=== PATIENT | male | born 1980 | race Hispanic/Latino ===

== ENCOUNTER 2018-05-28 10:06 | Inpatient (IN) | payer SELFPAY ==
[~2018-05-28] VITALS: Ht 167.6 cm; Wt 100.8 kg
[2018-05-28] MEDS ORDERED: ONDANSETRON HCL INJ 2 MG/ML VIAL IV STA (10:07)
[2018-05-28] MEDS ORDERED: MORPHINE SULFATE INJ 4 MG/ML INJ IV STA (10:07)
[2018-05-28] MEDS ORDERED: SODIUM CHLORIDE 0.9% 1000ML 1,000 ML IV STA (10:07)
[2018-05-28] MEDS ORDERED: DIATRIZOATE MEGL/DIATRIZOA SOD 30 ML BTL PO ONE (10:17)
[2018-05-28 10:26] LABS: BASOPHILS % 0.4 % (0.0-1.0); EOSINOPHILS % 0.3 % (0.0-6.0); HEMATOCRIT 41.3 % (38.2-49.6); HEMOGLOBIN 14.3 g/dL (14.0-18.0); LYMPHOCYTES % 9.4 % (18.0-39.1); MEAN CORPUSCULAR HGB CONC 34.6 g/dL (31-35); MEAN CORPUSCULAR VOLUME 89.4 fL (81-99); MONOCYTES # (AUTO) 0.8 (0.2-0.8); NEUTROPHILS % 82.4 % (38.7-80.0); PLATELET COUNT 328 x10e3/uL (140-360); RED BLOOD COUNT 4.62 x10e6/uL (4.3-5.7); RED CELL DISTRIBUTION WIDTH 12.7 % (11.7-14.4)
[2018-05-28 10:45] LABS: ALANINE AMINOTRANSFERASE 16 IU/L (0-55); ALBUMIN 3.8 g/dL (3.5-5.0); ALBUMIN/GLOBULIN RATIO 0.8 (0.8-2.0); ALKALINE PHOSPHATASE 94 IU/L (40-150); ANION GAP 17.5 mmol/L (8-16); BLOOD UREA NITROGEN 10 mg/dL (7-26); BUN/CREATININE RATIO 11 (6-25); CARBON DIOXIDE 23 mmol/L (22-29); CHLORIDE 103 mmol/L (98-107); CREATININE, SERUM 0.94 mg/dL (0.72-1.25); EST GLOMERULAR FILTRATION RATE > 60 ML/MIN (60-); GLUCOSE 106 mg/dL (74-118); LIPASE 29 U/L (8-78); POTASSIUM 3.5 mmol/L (3.5-5.1); SODIUM 140 mmol/L (136-145)
[2018-05-28] MEDS ORDERED: IBUPROFEN 600 MG TAB PO STA (11:12)
[2018-05-28 12:15] LABS: AMPHETAMINES SCREEN,URINE NEGATIVE (NEGATIVE); BENZODIAZEPINES SCREEN,URINE NEGATIVE (NEGATIVE); PHENCYCLIDINE SCREEN,URINE NEGATIVE (NEGATIVE)
[2018-05-28 12:17] LABS: CLARITY,URINE HAZY (CLEAR); COLOR,URINE YELLOW (YELLOW); LEUKOCYTE ESTERASE ,URINE TRACE (NEGATIVE)
[2018-05-28 12:18] LABS: BILIRUBIN,URINE 1+ (NEGATIVE); KETONES,URINE 1+ (NEGATIVE); NITRITE,URINE NEGATIVE (NEGATIVE); PROTEIN,URINE DIPSTICK TRACE (NEGATIVE); URINE UROBILINOGEN 4 mg/dL (0.2 - 1)
[2018-05-28 12:27] LABS: AMORPHOUS SEDIMENT,URINE FEW (FEW); BACTERIA,URINE FEW /HPF; EPITHELIAL CELLS,URINE FEW /LPF
--- NOTE | 2018-05-28 12:59 | Diagnostic Imaging Report ---
EXAM: CT Abdomen and Pelvis WITH contrast INDICATION: \S\r/o divertic / appy / etc COMPARISON: None. TECHNIQUE: Abdomen and pelvis were scanned utilizing a multidetector helical scanner from the lung base to the pubic symphysis after administration of IV contrast. Coronal and sagittal reformations were obtained. Dose modulation, iterative reconstruction, and/or weight based adjustment of the mA/kV was utilized to reduce the radiation dose to as low as reasonably achievable. Routine protocol was performed. Scan was performed when during portal venous phase. IV CONTRAST: 100 mL of Isovue-370 ORAL CONTRAST: Gastroview COMPLICATIONS: None RADIATION DOSE: Total DLP: 802.70 mGy*cm Estimated effective dose: (DLP x 0.015 x size factor) mSv CTDIvol has been reviewed. It is below the limits set by the Radiation Protocol Committee (RPC). FINDINGS: LINES and TUBES: None. LOWER THORAX: Unremarkable HEPATOBILIARY: 8 mm right hepatic lobe hypodensity is too small to characterize. Otherwise, no focal hepatic lesions. No biliary ductal dilation. GALLBLADDER: No radio-opaque stones or sludge. No wall thickening. SPLEEN: No splenomegaly. PANCREAS: No focal masses or ductal dilatation. ADRENALS: No adrenal nodules KIDNEYS/URETERS: Kidneys enhance symmetrically. No hydronephrosis. No cystic or solid mass lesions. 5 mm right inferior pole calculus. There is also a 5 mm distal right ureteral calculus versus closely abutting phlebolith (series 2, image 65). GI TRACT: No abnormal distention or evidence of bowel obstruction. Colonic diverticulosis with focal sigmoid wall thickening and surrounding inflammation, representing diverticulitis (series 2, image 72). There are few foci of extraluminal air, representing marked perforation (series 2, image 68). Appendix is normal. PELVIC ORGANS/BLADDER: Unremarkable. LYMPH NODES: No lymphadenopathy. VESSELS: Unremarkable. PERITONEUM / RETROPERITONEUM: No free air or fluid. BONES: Unremarkable. SOFT TISSUES: Unremarkable. IMPRESSION: 1. Microperforated sigmoid diverticulitis. The sigmoid colon in the area of diverticulitis is markedly thickened. Underlying lesion cannot be excluded and correlation with colonoscopy after resolution of inflammatory process is recommended. 2. 5 mm nonobstructive right renal calculus. There is also a 5 mm distal right ureteral calculus versus closely abutting phlebolith. No right hydronephrosis. Findings discussed with Dr. Norris at 12:50 PM, on 05/28/2018. Signed by: Dr. Andrew Morales MD on 05/28/2018 12:56 PM
[2018-05-28] MEDS: METRONIDAZOLE 500MG/NS 100ML 100 ML IV SCH ×2 (13:30→22:30)
[2018-05-28] MEDS: SODIUM CHLORIDE 0.9% 1000ML 1,000 ML IV SCH ×2 (15:32→22:30)
[2018-05-28 16:00] VITALS: BP 124/59
[2018-05-28 16:06] VITALS: BP 145/88
[2018-05-28] MEDS ORDERED: IOPAMIDOL 370 MG/ML 200 ML INFUS..BTL INJ ONE (17:37)
[2018-05-28] MEDS ORDERED: SODIUM CHLORIDE 0.9% 50ML 50 ML ONE (17:37)
[2018-05-28 20:00] VITALS: BP 140/78
[2018-05-28] MEDS: MORPHINE SULFATE INJ 4 MG/ML INJ IV PRN (20:39)
[2018-05-28] MEDS: ONDANSETRON HCL INJ 2 MG/ML VIAL IV PRN (20:39)
--- NOTE | 2018-05-28 21:26 | History and Physical ---
CHIEF COMPLAINT: Abdominal pain that started 4 days ago, progressively getting worse. HPI: Mr. Bragg is a 37-year-old male. He presented to the emergency room with worsening abdominal pain that started 4 days ago, progressively getting worse. This is not associated with any nausea and vomiting. Eating was making it worse. He decided to come to the emergency room today and CT scan of the abdomen and pelvis was done which showed evidence of contained perforation and sigmoid diverticulitis. Patient has been started on IV antibiotics, Flagyl and Levaquin. He is feeling somewhat better. REVIEW OF SYSTEMS GENERAL: Denies any fever or chills. HEAD: Denies any head trauma. ENT: Denies any earache. CVS: Denies any chest pain. RESPIRATORY: Denies any shortness of breath. GI: Abdominal pain. The rest of the review systems are negative except as in HPI. PAST MEDICAL HISTORY: None. SURGICAL HISTORY: None. FAMILY AND SOCIAL HISTORY: He lives with his mom. He works as a cook at [employer]. He does not smoke cigarette. He uses marijuana regularly. He denies any alcohol use. PHYSICAL EXAM VITAL SIGNS: Temperature 98.1, pulse of 70, blood pressure 124/60, respiratory rate of 18, O2 sat 96%. HEENT: Head atraumatic, normocephalic. NECK: Supple. No JVD. Thyroid not enlarged. CHEST: Clear to auscultation bilaterally. No wheezing. HEART: S1, S2 audible. ABDOMEN: Soft. Mild tenderness in the left lower quadrant. No rebound. LABS: White count of 10,000, hemoglobin 14.3, platelets 328. Chemistry is within normal limits. CT of the abdomen and pelvis showed sigmoid diverticulitis with microperforation. ASSESSMENT: Mr. Bragg is a 37-year-old male with microperforation and sigmoid diverticulitis. PLAN 1. IV Flagyl and Levaquin. 2. Surgery consult. 3. IV analgesics for pain control. 4. We will continue the patient on IV hydration. 5. Check labs in a.m. Job#: [id number] VAS
[2018-05-29] VITALS: BP 110/90
[2018-05-29 04:00] VITALS: BP 136/62
[2018-05-29 05:32] LABS: BASOPHILS % 0.5 % (0.0-1.0); EOSINOPHILS % 0.5 % (0.0-6.0); HEMATOCRIT 37.2 % (38.2-49.6); HEMOGLOBIN 12.6 g/dL (14.0-18.0); LYMPHOCYTES # (AUTO) 1.4 (1.0-3.2); LYMPHOCYTES % 15.8 % (18.0-39.1); MEAN CORPUSCULAR HEMOGLOBIN 30.7 pg (28-32); MEAN CORPUSCULAR HGB CONC 33.9 g/dL (31-35); MEAN CORPUSCULAR VOLUME 90.7 fL (81-99); MONOCYTES % 11.7 % (4.4-11.3); NEUTROPHILS # (AUTO) 6.3 (2.1-6.9); NEUTROPHILS % 70.8 % (38.7-80.0); PLATELET COUNT 271 x10e3/uL (140-360); RED CELL DISTRIBUTION WIDTH 12.5 % (11.7-14.4)
[2018-05-29] MEDS: METRONIDAZOLE 500MG/NS 100ML 100 ML IV SCH ×3 (05:33→21:26)
[2018-05-29 05:51] LABS: ALANINE AMINOTRANSFERASE 18 IU/L (0-55); ALBUMIN 3.2 g/dL (3.5-5.0); ALBUMIN/GLOBULIN RATIO 0.9 (0.8-2.0); ALKALINE PHOSPHATASE 81 IU/L (40-150); ANION GAP 17.7 mmol/L (8-16); BLOOD UREA NITROGEN 8 mg/dL (7-26); BUN/CREATININE RATIO 9 (6-25); CALCIUM 8.9 mg/dL (8.4-10.2); CARBON DIOXIDE 24 mmol/L (22-29); CHLORIDE 101 mmol/L (98-107); CREATININE, SERUM 0.86 mg/dL (0.72-1.25); EST GLOMERULAR FILTRATION RATE > 60 ML/MIN (60-); GLUCOSE 85 mg/dL (74-118); POTASSIUM 3.7 mmol/L (3.5-5.1); SODIUM 139 mmol/L (136-145)
[2018-05-29 07:38] VITALS: BP 129/73
[2018-05-29] MEDS: LEVOFLOXACIN 500MG/D5W 100ML 100 ML IV SCH (08:14)
[2018-05-29] MEDS: PANTOPRAZOLE 40 MG 10ML VIAL IV SCH (08:14)
[2018-05-29] MEDS: SODIUM CHLORIDE 0.9% 1000ML 1,000 ML IV SCH ×2 (08:14→17:18)
[2018-05-29] MEDS ORDERED: MORPHINE SULFATE 2 MG/ML SYR ONE (09:20)
[2018-05-29] MEDS: MORPHINE SULFATE INJ 4 MG/ML INJ IV PRN (09:24)
[2018-05-29] MEDS: ONDANSETRON HCL INJ 2 MG/ML VIAL IV PRN (09:24)
[2018-05-29 11:37] VITALS: BP 136/77
[2018-05-29 15:56] VITALS: BP 162/92
--- NOTE | 2018-05-29 15:56 | Consultation ---
DATE OF CONSULTATION: May 28, 2018 REFERRING PHYSICIAN: Dr. Hyman. HISTORY OF PRESENT ILLNESS: Patient is a 37-year-old male who presented to the emergency room with complaints of left lower quadrant abdominal pain, which he had for several days. He has not had similar pains in the past. He had no nausea or vomiting, but also has not had bowel movements for 3 days. Evaluation in the emergency room with CT scan of the abdomen and pelvis revealed findings suggestive of sigmoid diverticulitis with contained perforation. PAST MEDICAL HISTORY: Otherwise, unremarkable. Denies chronic medical problems. PAST SURGICAL HISTORY: He has not had previous surgery. MEDICATIONS: There are no current medications. ALLERGIES: NO KNOWN ALLERGIES. FAMILY HISTORY: Noncontributory. SOCIAL HISTORY: The patient says he does not smoke cigarettes or drink alcohol. Works as a cook for [employer]. REVIEW OF SYSTEMS: As stated above. Otherwise was negative. PHYSICAL EXAMINATION GENERAL: The patient is awake and alert, in no distress. VITALS: Normal. He is not tachycardic. HEENT: Unremarkable. Sclerae are nonicteric. NECK: Supple. No masses. LUNGS: Equal breath sounds, clear bilaterally. CARDIAC: Regular rate and rhythm. Normal S1 and S2 without murmur, S3, or S4. There is no jugular venous distention. ABDOMEN: Tender in the left lower quadrant with localized signs of peritonitis. There is no mass. There is no organomegaly. EXTREMITIES: No edema. Pulses are palpable. NEUROLOGIC: Intact. LABORATORY DATA: White blood cell count is 11,000. ASSESSMENT: A 37-year-old male with acute sigmoid diverticulitis. There are no signs of sepsis. Generalized peritonitis seems to be contained. PLAN: Recommendation is to keep the patient on IV antibiotics, NPO, and IV fluids. Hopefully, his symptoms will resolve without requiring any surgical intervention. This was explained to the patient. Thank you for asking me to see Mr. Bragg. Job#: [id number] MEEK
[2018-05-29 20:00] VITALS: BP 155/94
[2018-05-29] MEDS: HEPARIN SOD (PORCINE) 5,000 UNIT/ML VIAL SC SCH (21:56)
[2018-05-30] VITALS (9 sets, daily range): BP systolic 138–187; BP diastolic 77–97
[2018-05-30] MEDS: SODIUM CHLORIDE 0.9% 1000ML 1,000 ML IV SCH ×4 (02:00→23:32)
[2018-05-30] MEDS: METRONIDAZOLE 500MG/NS 100ML 100 ML IV SCH ×3 (05:32→21:56)
[2018-05-30] MEDS: PANTOPRAZOLE 40 MG 10ML VIAL IV SCH (08:31)
[2018-05-30] MEDS: LEVOFLOXACIN 500MG/D5W 100ML 100 ML IV SCH (08:31)
[2018-05-30] MEDS: HEPARIN SOD (PORCINE) 5,000 UNIT/ML VIAL SC SCH ×2 (08:52→21:56)
[2018-05-31 01:30] VITALS: BP 134/68
[2018-05-31] MEDS: METRONIDAZOLE 500MG/NS 100ML 100 ML IV SCH ×2 (05:29→13:43)
[2018-05-31 06:24] VITALS: BP 114/65
[2018-05-31 07:41] VITALS: BP 169/83
[2018-05-31 08:00] VITALS: BP 169/83
[2018-05-31] MEDS: LEVOFLOXACIN 500MG/D5W 100ML 100 ML IV SCH (08:23)
[2018-05-31] MEDS: SODIUM CHLORIDE 0.9% 1000ML 1,000 ML IV SCH (08:23)
[2018-05-31] MEDS: PANTOPRAZOLE 40 MG 10ML VIAL IV SCH (08:23)
[2018-05-31] MEDS: HEPARIN SOD (PORCINE) 5,000 UNIT/ML VIAL SC SCH (09:54)
[2018-05-31 12:00] VITALS: BP 142/83
--- OUTSIDE RECORDS SUMMARY | 2018-05-31 13:42 | XMS REPORT ---
Author Author [facility] Address Unknown Phone Unavailable Care Team Providers Care Dialer Name Role Phone LUDAJESSENIALashaeIAN Unavailable Unavailable Problems This patient has no known problems. Allergies, Adverse Reactions, Alerts This patient has no known allergies or adverse reactions. Medications This patient has no known medications. Results Test Description Test Time Test Comments Text Results Atomic Results Result Comments CT ABDOMEN/PELVIS W 2018-05-28 12:46:00 [facility] [address], [place] [address] Patient Name: IAIN BAUER MR #: [id number] : 1980 Age/Sex: 37/M Req #: [id number] Adm Physician: Ordered by: BROCK AJ RECOIL SPRING WINDER Report #: [id number] Location: ER Room/Bed: Procedure: [id number] CT/CT ABDOMEN/PELVIS W Exam Date: Exam Time: REPORT STATUS: Signed EXAM: CT Abdomen and Pelvis WITH contrast INDICATION: COMPARISON: None. TECHNIQUE: Abdomen and pelvis were scanned utilizing a multidetector helical scanner from the lung base to the pubic symphysis after administration of IV contrast. Coronal and sagittal reformations were obtained. Dose modulation, iterative reconstruction, and/or weight based adjustment of the mA/kV was utilized to reduce the radiation dose to as low as reasonably achievable. Routine protocol was performed. Scan was performed when during portal venous phase. IV CONTRAST: 100 mL of Isovue-370 ORAL CONTRAST: Gastroview COMPLICATIONS: None RADIATION DOSE: Total DLP: 802.70 mGy*cm Estimated effective dose: (DLP x 0.015 x size factor) mSv CTDIvol has been reviewed. It is below the limits set by the Radiation Protocol Committee (RPC). FINDINGS: LINES and TUBES: None. LOWER THORAX: Unremarkable HEPATOBILIARY: 8 mm right hepatic lobe hypodensity is too small to characterize. Otherwise, no focal hepatic lesions. No biliary ductal dilation. GALLBLADDER: No radio-opaque stones or sludge. No wall thickening. SPLEEN: No splenomegaly. PANCREAS: No focal masses or ductal dilatation. ADRENALS: No adrenal nodules KIDNEYS/URETERS: Kidneys enhance symmetrically. No hydronephrosis. No cystic or solid mass lesions. 5 mm right inferior pole calculus. There is also a 5 mm distal right ureteral calculus versus closely abutting phlebolith (series 2, image 65). GI TRACT: No abnormal distention or evidence of bowel obstruction. Colonic diverticulosis with focal sigmoid wall thickening and surrounding inflammation, representing diverticulitis (series 2, image 72). There are few foci of extraluminal air, representing marked perforation (series 2, image 68). Appendix is normal. PELVIC ORGANS/BLADDER: Unremarkable. LYMPH NODES: No lymphadenopathy. VESSELS: Unremarkable. PERITONEUM / RETROPERITONEUM: No free air or fluid. BONES: Unremarkable. SOFT TISSUES: Unremarkable. IMPRESSION: 1. Microperforated sigmoid diverticulitis. The sigmoid colon in the area of diverticulitis is markedly thickened. Underlying lesion cannot be excluded and correlation with colonoscopy after resolution of inflammatory process is recommended. 2. 5 mm nonobstructive right renal calculus. There is also a 5 mm distal right ureteral calculus versus closely abutting phlebolith. No right hydronephrosis. Findings discussed with Dr. Norris at 12:50 PM, on 05/28/2018. Signed by: Dr. Andrew Walton MD on 05/28/2018 12:56 PM Dictated By: ANDREW WALTON MD [id number] Transcribed By: GARCIA on 05/28/18 1256 COPY TO: BROCK AJ NP
[2018-05-31] MEDS ORDERED: LEVAQUIN500 MG PO ×2 (14:28→14:54)
[2018-05-31] MEDS ORDERED: METRONIDAZOLE500 MG PO ×2 (14:29→14:54)
--- NOTE | 2018-05-31 15:35 | Discharge Summary ---
A patient of Dr. Hyman, Dr. Yen. A charming but unfortunate 37-year-old gentleman admitted with abdominal pain, found to have sigmoid diverticulitis with microperforation. He was treated with Flagyl and Levaquin and gradually improved. Surgical opinion was obtained from Dr. Yen. Patient is a nonsmoker. There is no alcohol. He is warned to modify his diet, to avoid nuts, corn, particularly popcorn. He was given two prescriptions, one for Levaquin 500 mg once a day, number 10, and metronidazole 500 mg three times a day, number 30. Dr. Yen has agreed to follow him as an outpatient. Patient is discharged much improved. White count 8.83, hemoglobin 12.6. Labile blood sugars were noted. APRYL CAGE MD Job#: [id number] EV
== END 2018-05-31 15:30 | disposition home or self-care (01) | DRG 392 ==
LOC: ER 10:06 → ERHOLD 13:02 → MED/SURG2 15:12
PROVIDERS: ADMIT Internal Medicine; ATTEND Internal Medicine
DX: K57.20 Diverticulitis of large intestine with perforation and abscess without bleeding (principal); Z87.442 Personal history of urinary calculi; M54.9 Dorsalgia, unspecified
CPT/HCPCS: 36415; 74177; 80053; 80307; 81001; 82948; 83690; 85025; 87086; 96361; 99284; J1644; J1956; J2270; J2405; J7030; Q9967

== ENCOUNTER 2021-01-31 07:57 | Inpatient (IN) | payer SELFPAY ==
[~2021-01-31] VITALS: Ht 167.6 cm; Wt 100.7 kg
[~2021-01-31 07:57] MED LIST: LEVAQUIN500 MG PO; METRONIDAZOLE500 MG PO
[2021-01-31] MEDS ORDERED: ONDANSETRON HCL INJ 2MG/ML 2ML 2 MG/ML VIAL IV STA (08:09)
[2021-01-31] MEDS ORDERED: KETOROLAC TROMETHAMINE 30 MG/ML VIAL IV STA (08:09)
[2021-01-31] MEDS ORDERED: SODIUM CHLORIDE 0.9% 1000ML 1,000 ML IV STA (08:09)
[2021-01-31 08:39] LABS: BASOPHILS % 0.3 % (0.0-1.0); EOSINOPHILS % 0.2 % (0.0-6.0); HEMATOCRIT 44.5 % (38.2-49.6); HEMOGLOBIN 14.9 g/dL (14.0-18.0); LYMPHOCYTES # (AUTO) 1.1 (1.0-3.2); LYMPHOCYTES % 9.3 % (18.0-39.1); MEAN CORPUSCULAR HEMOGLOBIN 30.4 pg (28-32); MEAN CORPUSCULAR HGB CONC 33.5 g/dL (31-35); MEAN CORPUSCULAR VOLUME 90.8 fL (81-99); MONOCYTES # (AUTO) 0.8 (0.2-0.8); MONOCYTES % 6.9 % (4.4-11.3); NEUTROPHILS # (AUTO) 9.8 (2.1-6.9); PLATELET COUNT 314 x10e3/uL (140-360)
[2021-01-31 08:40] LABS: CLARITY,URINE CLEAR (CLEAR); COLOR,URINE YELLOW (YELLOW); LEUKOCYTE ESTERASE ,URINE NEGATIVE (NEGATIVE); NITRITE,URINE NEGATIVE (NEGATIVE); PROTEIN,URINE DIPSTICK 1+ (NEGATIVE)
[2021-01-31 08:41] LABS: KETONES,URINE 1+ (NEGATIVE); URINE UROBILINOGEN 0.2 mg/dL (0.2 - 1)
[2021-01-31 08:58] LABS: ALANINE AMINOTRANSFERASE 16 IU/L (0-55); ALBUMIN 4.1 g/dL (3.5-5.0); ALKALINE PHOSPHATASE 112 IU/L (40-150); ANION GAP 14.6 mmol/L (8-16); BLOOD UREA NITROGEN 11 mg/dL (7-26); BUN/CREATININE RATIO 10 (6-25); CALCIUM 8.8 mg/dL (8.4-10.2); CARBON DIOXIDE 26 mmol/L (22-29); CHLORIDE 102 mmol/L (98-107); CREATININE, SERUM 1.06 mg/dL (0.72-1.25); EST GLOMERULAR FILTRATION RATE > 60 ML/MIN (60-); GLUCOSE 126 mg/dL (74-118); POTASSIUM 3.6 mmol/L (3.5-5.1); SODIUM 139 mmol/L (136-145)
[2021-01-31 09:04] LABS: BACTERIA,URINE MODERATE /HPF; EPITHELIAL CELLS,URINE RARE /LPF; RBC,URINE >50 /HPF (0-5)
[2021-01-31] MEDS ORDERED: CEFTRIAXONE 1 GM in SODIUM CHLORIDE 0.9% 50ML 50 ML IV STA (09:10)
[2021-01-31] MEDS ORDERED: KETOROLAC TROMETHAMINE 30 MG/ML VIAL IV PRN (12:15)
[2021-01-31] MEDS ORDERED: MORPHINE SULFATE INJ 2 MG/ML SYR IV PRN (12:15)
[2021-01-31] MEDS ORDERED: POVIDONE IODINE 0.05% 0.05 % ML PO ONE (12:34)
[2021-01-31] MEDS ORDERED: DEXAMETHASONE SOD PHOS INJ 4 MG/ML VIAL ONE (12:34)
[2021-01-31] MEDS ORDERED: ONDANSETRON HCL INJ 2MG/ML 2ML 2 MG/ML VIAL ONE (12:34)
[2021-01-31] MEDS ORDERED: SEVOFLURANE INHAL SOLN 250 ML PEN BTL ONE (12:34)
[2021-01-31] MEDS ORDERED: PROPOFOL IV EMULSION 10 MG/ML 20 ML VIAL ONE (12:34)
[2021-01-31] MEDS ORDERED: LIDOCAINE HCL 2% LOCAL INJ 5 ML SDV VIAL INJ ONE (12:34)
[2021-01-31] MEDS: SODIUM CHLORIDE 0.9% 1000ML 1,000 ML IV SCH (12:39)
[2021-01-31] MEDS: MORPHINE SULFATE INJ 4 MG/ML INJ 1ML IV PRN ×2 (13:12→20:42)
[2021-01-31] MEDS: ONDANSETRON HCL INJ 2MG/ML 2ML 2 MG/ML VIAL IV PRN ×2 (13:12→20:42)
[2021-01-31 13:15] VITALS: BP 158/88
[2021-01-31] MEDS ORDERED: FENTANYL CITRATE/PF 100MCG/2 ML INJ ONE (15:17)
[2021-01-31] MEDS ORDERED: MIDAZOLAM HCL 2 MG/2 ML VIAL ONE (15:17)
[2021-01-31 16:27] VITALS: BP 146/96
[2021-01-31 18:02] VITALS: BP 146/96
[2021-01-31 19:39] VITALS: BP 168/93
[2021-01-31 20:00] VITALS: BP 168/93
[2021-01-31] MEDS: CEFTRIAXONE 1 GM in SODIUM CHLORIDE 0.9% 50ML 50 ML IV SCH (20:42)
[2021-01-31 21:00] VITALS: BP 168/93
[2021-02-01 00:21] VITALS: BP 135/79
[2021-02-01] MEDS: SODIUM CHLORIDE 0.9% 1000ML 1,000 ML IV SCH ×2 (01:06→08:15)
[2021-02-01 05:20] VITALS: BP 144/95
[2021-02-01 05:26] LABS: BASOPHILS % 0.3 % (0.0-1.0); EOSINOPHILS # (AUTO) 0.1 (0.0-0.4); EOSINOPHILS % 1.4 % (0.0-6.0); HEMATOCRIT 41.3 % (38.2-49.6); HEMOGLOBIN 13.6 g/dL (14.0-18.0); LYMPHOCYTES # (AUTO) 1.3 (1.0-3.2); LYMPHOCYTES % 14.3 % (18.0-39.1); MEAN CORPUSCULAR HEMOGLOBIN 30.2 pg (28-32); MEAN CORPUSCULAR HGB CONC 32.9 g/dL (31-35); MEAN CORPUSCULAR VOLUME 91.8 fL (81-99); MONOCYTES # (AUTO) 0.9 (0.2-0.8); NEUTROPHILS # (AUTO) 6.5 (2.1-6.9); NEUTROPHILS % 73.5 % (38.7-80.0); PLATELET COUNT 263 x10e3/uL (140-360); RED CELL DISTRIBUTION WIDTH 13.1 % (11.7-14.4)
[2021-02-01 05:44] LABS: ANION GAP 12.8 mmol/L (8-16); BLOOD UREA NITROGEN 11 mg/dL (7-26); BUN/CREATININE RATIO 8 (6-25); CALCIUM 8.3 mg/dL (8.4-10.2); CARBON DIOXIDE 26 mmol/L (22-29); CHLORIDE 104 mmol/L (98-107); EST GLOMERULAR FILTRATION RATE > 60 ML/MIN (60-); GLUCOSE 112 mg/dL (74-118); POTASSIUM 3.8 mmol/L (3.5-5.1); SODIUM 139 mmol/L (136-145)
[2021-02-01] MEDS ORDERED: IOPAMIDOL 300MG/ML 50ML INFUS..BTL IV ONE (07:18)
[2021-02-01 07:39] VITALS: BP 135/90
[2021-02-01 09:27] VITALS: BP 152/69
[2021-02-01 09:36] VITALS: BP 141/93
[2021-02-01] MEDS: CEFTRIAXONE 1 GM in SODIUM CHLORIDE 0.9% 50ML 50 ML IV SCH (09:53)
[2021-02-01 12:01] VITALS: BP 128/77
== END 2021-02-01 15:48 | disposition home or self-care (01) | DRG 660 ==
LOC: ER 08:09 → ERHOLD 12:27 → MED/SURG2 12:48
PROVIDERS: ADMIT Internal Medicine; ATTEND Internal Medicine
PROC: 0T778DZ Dilation of Left Ureter with Intraluminal Device, Via Natural or Artificial Opening Endoscopic (ICD-10-PCS; 2021-02-01)
PROC: BT1F1ZZ Fluoroscopy of Left Kidney, Ureter and Bladder using Low Osmolar Contrast (ICD-10-PCS; principal; 2021-02-01 08:00)
DX: N13.6 Pyonephrosis (principal); N20.2 Calculus of kidney with calculus of ureter; Z20.822 Contact with and (suspected) exposure to COVID-19; K57.90 Diverticulosis of intestine, part unspecified, without perforation or abscess without bleeding
CPT/HCPCS: 36415; 74176; 74420; 80048; 80053; 81001; 82948; 85025; 87086; 99284; C1758; J0696; J1100; J1885; J2001; J2250; J2270; J2405; J3010; J7030; U0002

== ENCOUNTER 2021-03-10 09:11 | Emergency (ER) | payer SELFPAY ==
[~2021-03-10] VITALS: Ht 167.6 cm; Wt 100.7 kg
[2021-03-10 11:06] LABS: CLARITY,URINE CLEAR (CLEAR); COLOR,URINE YELLOW (YELLOW); KETONES,URINE NEGATIVE (NEGATIVE); LEUKOCYTE ESTERASE ,URINE SMALL (NEGATIVE); NITRITE,URINE POSITIVE (NEGATIVE); PROTEIN,URINE DIPSTICK 2+ (NEGATIVE); URINE UROBILINOGEN 1 mg/dL (0.2 - 1)
[2021-03-10 11:15] LABS: BACTERIA,URINE MANY /HPF; EPITHELIAL CELLS,URINE MODERATE /LPF; RBC,URINE >50 /HPF (0-5); WBC,URINE (MAN) >50 /HPF (0-5)
[2021-03-10] MEDS ORDERED: CEPHALEXIN500 MG PO (11:26)
== END 2021-03-10 11:43 | disposition home or self-care (01) ==
LOC: ER 10:18
DX: N39.0 Urinary tract infection, site not specified (principal); Z87.442 Personal history of urinary calculi
CPT/HCPCS: 81001; 99283